=== PATIENT | female | born 1990 | race American Indian/Alaskan Native ===

== ENCOUNTER 2017-07-16 16:23 | Emergency (ER) | payer OTHER ==
[2017-07-16 16:47] VITALS: BP 109/68
[2017-07-16 17:10] LABS: Basophils % (Auto) 0.9 % (0.0-1.8); Eosinophils # (Auto) 0.1 K/mm3 (0.0-0.4); Eosinophils % (Auto) 2.8 % (0.0-4.3); Hematocrit 41.4 % (30.3-42.9); Hemoglobin 13.7 gm/dl (10.1-14.3); Lymphocytes # (Auto) 1.3 K/mm3 (1.2-5.4); Lymphocytes % (Auto) 28.3 % (13.4-35.0); Mean Corpuscular HGB Conc 33 % (30-34); Mean Corpuscular Hemoglobin 31 pg (28-32); Mean Corpuscular Volume 94 fl (79-97); Monocytes # (Auto) 0.4 K/mm3 (0.0-0.8); Monocytes % (Auto) 8.4 % (0.0-7.3); Platelet Count 204 K/mm3 (140-440); Red Blood Count 4.41 M/mm3 (3.65-5.03); Red Cell Distribution Width 14.1 % (13.2-15.2)
[2017-07-16 17:32] LABS: Alanine Aminotransferase 11 units/L (7-56); Albumin 4.1 g/dL (3.9-5); BUN/Creatinine Ratio 17; Blood Urea Nitrogen 10 mg/dL (7-17); Calcium 9.1 mg/dL (8.4-10.2); Hemolysis Index 5
== END 2017-07-16 20:26 | disposition left against medical advice (07) ==
LOC: ED 16:23
DX: R10.9 Unspecified abdominal pain (principal); Z53.21 Procedure and treatment not carried out due to patient leaving prior to being seen by health care provider
CPT/HCPCS: 36415; 80053; 84702; 84703; 85025; 86850; 86900; 86901

== ENCOUNTER 2018-11-23 11:39 | Emergency (ER) | payer MEDICAID ==
[2018-11-23 12:07] VITALS: BP 164/119
[2018-11-23] MEDS ORDERED: DELTASONE PO ONE (12:09)
--- NOTE | 2018-11-23 12:15 | Emergency Department Report ---
ED Rash HPI - HPI Chief Complaint: Skin Rash Stated Complaint: RASH Time Seen by Provider: 11/23/18 12:04 Duration: 1 week Location: Lower Extremities Rash Symptoms: Yes Itching, Yes Fever, No Facial Swelling, No Tongue/Oral Swelling, No Breathing Difficulties, No Choking Sensation, No Wheezing/Dyspnea, No Peeling, No Blistering, No Lightheaded, No Malaise, No Myalgias Severity: moderate Other History: 28 y/o comes in rash that 1 week. Was working in the yard last week with short shorts. Reprts that she had a fever but has been able to break it. Has used OTC oatmeal baths and Calimine lotions. Last tetanus within a year. ED Review of Systems ROS: Stated complaint: RASH Other details as noted in HPI Comment: All other systems reviewed and negative Skin: rash ED Past Medical Hx - Past Medical History Previous Medical History?: Yes Hx Hypertension: No Hx Diabetes: No Hx Deep Vein Thrombosis: No Hx Renal Disease: No Hx Sickle Cell Disease: No Hx Seizures: No Hx Asthma: Yes Hx HIV: No - Surgical History Past Surgical History?: Yes Additional Surgical History: Ectopic - Social History Smoking Status: Never Smoker Substance Use Type: None - Medications Home Medications: Home Medications Medication Instructions Recorded Confirmed Last Taken Type Prednisone [predniSONE 10 mg 10 mg PO .TAPER #1 tab.ds.pk 11/23/18 Unknown Rx (6-Day Pack, 21 Tabs)] Triamcinolone Acetonide 1 applic TP BID PRN #45 oint...g. 11/23/18 Unknown Rx [Triamcinolone Acetonide Oint 0.5%] diphenhydrAMINE [Benadryl CAP] 25 mg PO Q8HR PRN #30 capsule 11/23/18 Unknown Rx Rash Exam - Exam General: Vital signs noted. No distress. Alert and acting appropriately. HEENT: No Periorbital Edema, No Conjuctival Injection, No Chemosis, No Perioral Edema, No Tongue Edema, No Uvular Edema, No Compromised Airway, No Drooling Lungs: Yes Good Air Exchange (Normal Breath Sounds), No Wheezes, No Ronchi, No Stridor, No Cough, No Labored Respirations, No Retractions, No Use of Accessory Muscles, No Other Abnormal Lung Sounds Skin: Yes Maculopapular Rash ( that are dark. ), No Urticarial Rash, No Morbilliform rash, No Bulla(e), No Excoriations, No Weeping, No Tenderness, No Erythema, No Edema, No Encrustations ED Medical Decision Making - Medical Decision Making 28 year old female comes in for a rash that itches. Prednisone 60 mg order. Patient will be discharge on Prednisone TAC and brenadry. Referral to dermatology. Critical care attestation.: If time is entered above; I have spent that time in minutes in the direct care of this critically ill patient, excluding procedure time. ED Disposition Clinical Impression: Rash and nonspecific skin eruption Disposition: TO HOME OR SELFCARE Is pt being admited?: No Does the pt Need Aspirin: No Condition: Stable Instructions: Acute Rash (ED) Additional Instructions: Take medications as prescribed. Follow up with Dermatology. Prescriptions: diphenhydrAMINE [Benadryl CAP] 25 mg PO Q8HR PRN #30 capsule PRN Reason: Rash Prednisone [predniSONE 10 mg (6-Day Pack, 21 Tabs)] 10 mg PO .TAPER #1 tab.ds.pk Triamcinolone Acetonide [Triamcinolone Acetonide Oint 0.5%] 1 applic TP BID PRN #45 oint...g. PRN Reason: Rash Referrals: ROMULO LIN MD [Primary Care Provider] - 3-5 Days NICOLE MCKEON MD [Staff Physician] - 3-5 Days
== END 2018-11-23 12:49 | disposition home or self-care (01) ==
LOC: ED 11:39
DX: R21 Rash and other nonspecific skin eruption (principal); R50.9 Fever, unspecified; Z79.899 Other long term (current) drug therapy; Z88.8 Allergy status to other drugs, medicaments and biological substances
CPT/HCPCS: 99282; J7512

== ENCOUNTER 2019-06-04 15:10 | Outpatient (CLI) | payer MEDICAID ==
[2019-06-04] MEDS ORDERED: ONDANSETRON 4 MG/2 ML INJ IV PRN (15:37)
[2019-06-04] MEDS ORDERED: LACTATED RINGERS 500 ML IV ONE (15:37)
[2019-06-04 16:12] VITALS: BP 118/57
[2019-06-04 18:43] LABS: Bilirubin,Urine NEG (Negative); Blood,Urine NEG (Negative); Color,Urine Yellow (Yellow); Mucus,Urine 3+ /HPF
== END 2019-06-04 18:50 | disposition left against medical advice (07) ==
LOC: TRG 15:10
PROVIDERS: ATTEND Obstetrics & Gynecology
DX: O47.03 False labor before 37 completed weeks of gestation, third trimester (principal); Z3A.28 28 weeks gestation of pregnancy
CPT/HCPCS: 59025; 81001; 96365; 96366; J2405; J7120; 96360